=== PATIENT | male | born 1995 | race African-American/Black ===

== ENCOUNTER 2017-01-15 16:56 | Emergency (ER) | payer OTHER ==
[2017-01-15 17:40] LABS: #Basophils 0.1 thou/uL (0.0-0.2); #Eosinphils 0.1 thou/uL (0.0-0.7); #Lymphocytes 3.2 thou/uL (1.20-3.40); #Monocytes 0.7 thou/uL (0.11-0.59); #Neutrophils 5.3 thou/uL (1.40-6.50); %Basophils 0.6 % (0.0-1.0); %Eosinophils 1.3 % (0.0-10.0); %Lymphocytes 34.3 % (28.0-48.0); %Monocytes 7.4 % (0.0-4.0); Hematocrit 43.9 % (42.0-52.0); Mean Platelet Volume 10.2 fL (7.4-10.4); Red Blood Cell (RBC) Count 5.34 mill/uL (4.00-5.20); White Blood Cell (WBC) Count 9.3 thou/uL (4.8-10.8)
[2017-01-15 18:08] LABS: Troponin I 0.014 ng/mL (< 0.028)
--- NOTE | 2017-01-15 18:20 | RAD ---
PA AND LATERAL CHEST: History: Chest pain, abnormal EKG. FINDINGS: The cardiomediastinum is normal. The lungs are expanded and clear. The bony thorax is normal. IMPRESSION: Normal exam. POS: [facility]
[2017-01-15 18:24] LABS: Anion Gap 18 mmol/L (10-20); BUN (Urea Nitrogen) 18 mg/dL (8.4-21.0); CK (CPK) 592 U/L (30-200); Calc. Creatinine Clearance 0 mL/min (70-130); Calcium 10.4 mg/dL (7.8-10.44); Carbon Dioxide 23 mmol/L (22-29); Chloride 94 mmol/L (98-107); Estimated GFR-MDRD 58; Magnesium 2.4 mg/dL (1.7-2.2)
[2017-01-15 19:07] LABS: Hemoglobin A1c 12.2 % (4.0-6.0)
[2017-01-15 19:07] LABS: Phosphorus 5.6 mg/dL (2.3-4.7)
[2017-01-15] MEDS ORDERED: Insulin Regular 300 UNITS/3 ML VIAL ONE (19:11)
[2017-01-15 19:43] LABS: Bilirubin Negative (Negative); Blood, Urine Negative (Negative); Glucose, Urine (Dipstick) >=1000 mg/dL (Negative); Ketone, Urine 15 mg/dL (Negative); Nitrite Negative (Negative); Protein, Urine (Dipstick) Negative (Neg-Trace); Urobilinogen 0.2 mg/dL (0.2-1.0)
[2017-01-15 20:26] LABS: Anion Gap 11 mmol/L (-14-95); T. Carbon Dioxide 29.2 mmol/L (1.0-85.0); pH (Venous) 7.378 (7.35-7.45); vO2 Saturation-calc 82.2 % (0.0-100.0)
== END 2017-01-15 21:45 | disposition home or self-care (01) ==
LOC: ERS 16:56
DX: R07.89 Other chest pain (principal); E11.9 Type 2 diabetes mellitus without complications; I10 Essential (primary) hypertension; F17.220 Nicotine dependence, chewing tobacco, uncomplicated
CPT/HCPCS: 36415; 36416; 71020; 80048; 81003; 82010; 82330; 82553; 82803; 83036; 83690; 83735; 84100; 84484; 85025; 93005; 93010; 96361; 96372; 96374; J1815

== ENCOUNTER 2019-03-29 12:30 | Emergency (ER) | payer OTHER ==
[2019-03-29] MEDS ORDERED: Lidocaine 1% w/Epinephrine 1:100K 20 ML VIAL ONE (12:52)
[2019-03-29] MEDS ORDERED: HYDROcodone/Acetaminophen 10/325 mg Tablet ONE (12:52)
== END 2019-03-29 14:20 | disposition home or self-care (01) ==
LOC: ERS 12:30
DX: L02.211 Cutaneous abscess of abdominal wall (principal); I10 Essential (primary) hypertension; E11.9 Type 2 diabetes mellitus without complications; F17.220 Nicotine dependence, chewing tobacco, uncomplicated; Z79.84 Long term (current) use of oral hypoglycemic drugs
CPT/HCPCS: 10060

== ENCOUNTER 2019-07-30 14:32 | Emergency (ER) | payer OTHER ==
[2019-07-30] MEDS ORDERED: Bupivacaine 0.5% 10 ML VIAL ONE (15:31)
[2019-07-30] MEDS ORDERED: HYDROcodone/Acetaminophen 10/325 mg Tablet ONE (16:17)
[2019-07-30] MEDS ORDERED: cefTRIAXone\\ROCEPHIN 2 GM VIAL ONE (17:15)
[2019-07-30 17:26] LABS: #Eosinphils 0.1 thou/uL (0.0-0.7); #Lymphocytes 2.6 thou/uL (1.20-3.40); #Monocytes 1.4 thou/uL (0.11-0.59); #Neutrophils 9.9 thou/uL (1.40-6.50); %Basophils 0.3 % (0.0-1.0); %Eosinophils 0.5 % (0.0-10.0); %Lymphocytes 18.3 % (21.0-51.0); %Monocytes 9.9 % (0.0-10.0); Hemoglobin 13.7 g/dL (14.0-18.0); Mean Corpuscular HGB CONC 35.1 g/dL (32.0-36.0); Mean Corpuscular Volume 82.5 fL (78.0-98.0); Platelet Count 123 thou/uL (130-400); RBC Distribution Width 12.2 % (11.5-14.5); Red Blood Cell (RBC) Count 4.72 mill/uL (4.70-6.10); White Blood Cell (WBC) Count 13.9 thou/uL (4.8-10.8)
== END 2019-07-30 18:23 | disposition home or self-care (01) ==
LOC: ERS 14:32
DX: L02.214 Cutaneous abscess of groin (principal); L03.311 Cellulitis of abdominal wall; I10 Essential (primary) hypertension; F17.210 Nicotine dependence, cigarettes, uncomplicated
CPT/HCPCS: 10060; 85025; 96365; J0696; J3490

== ENCOUNTER 2019-07-31 14:33 | Emergency (ER) | payer OTHER | END 2019-07-31 15:07 | disposition home or self-care (01) | LOC: ERS 14:33 | DX: L03.314 Cellulitis of groin (principal); L02.214 Cutaneous abscess of groin; I10 Essential (primary) hypertension; F17.210 Nicotine dependence, cigarettes, uncomplicated; Z79.899 Other long term (current) drug therapy | CPT/HCPCS: 99282 ==

== ENCOUNTER 2024-02-27 02:48 | Inpatient (IN) | payer BC ==
[2024-02-27] MEDS ORDERED: Senokot S 8.6-50 MG TAB PO PRN (03:04)
[2024-02-27] MEDS ORDERED: Ondansetron PF 4 MG/2 ML Vial IVP PRN ×3 (03:04→09:40)
[2024-02-27] MEDS ORDERED: Acetaminophen 325 MG TAB PO PRN (03:04)
[2024-02-27] MEDS ORDERED: Calcium Carbonate 500 MG ChewTAB PO PRN (03:04)
[2024-02-27] MEDS ORDERED: Dextrose 50% Abboject 50 ML SYRINGE SLOW IVP PRN (03:08)
[2024-02-27] MEDS ORDERED: Glucagon 1 MG/ML KIT IM PRN (03:08)
[2024-02-27] MEDS ORDERED: Dextrose 5% in Water 1,000 ML IV PRN (03:08)
[2024-02-27 03:09] LABS: Actual Bicarbonate (HCO3a) 22.7 mEq/L (22-28); Base Excess (BEa) -1.2 mEq/L (-2.0 to +3.0); CO2 Tension 35.6 mmHg (35.0-45.0); Calcium, Ionized (arterial) 1.17 mmol/L (1.12-1.30); O2 Tension (PaO2), arterial 85.1 mmHg (80.0-100.0); Potassium - ABG Lab 4.16 mmol/L (3.70-5.30); pH, Arterial 7.422 (7.35-7.45)
[2024-02-27 03:10] LABS: Puncture Site Right Radial artery
[2024-02-27] MEDS ORDERED: Ipratropium/Albuterol 3 ML NEB NEB PRN (04:00)
[2024-02-27 04:21] VITALS: BMI 41.2
[2024-02-27 05:07] LABS: Amphetamine Not Detected (NotDetected); Barbiturates Screen Not Detected (NotDetected); Benzodiazepine Screen Not Detected (NotDetected); Cocaine Metabolite Screen Not Detected (NotDetected); Methadone Not Detected (NotDetected); Methamphetamine Not Detected (NotDetected); Opiate Screen Not Detected (NotDetected); Oxycodone Screen Not Detected (NotDetected); Phencyclidine (PCP) Not Detected (NotDetected); THC/Cannabinoid Screen Not Detected (NotDetected); Tricyclic Screen Not Detected (NotDetected)
[2024-02-27 05:09] LABS: #Basophils 0.04 10x3/uL (0.0-0.2); %Basophils 0.5 % (0.0-1.0); %Eosinophils 1.4 % (0.0-10.0); %Lymphocytes 28.9 % (21.0-51.0); %Monocytes 8.3 % (0.0-10.0); %Neutrophils 60.5 % (42.0-75.0); Hematocrit 36.3 % (42.0-52.0); Hemoglobin 12.5 g/dL (14.0-18.0); Mean Corpuscular HGB CONC 34.4 g/dL (32.0-36.0); Mean Corpuscular Hemoglobin 27.5 pg (27.0-31.0); Mean Corpuscular Volume 79.8 fL (78.0-98.0); Mean Platelet Volume 11.8 fL (7.4-10.4); Platelet Count 176 10x3/uL (130-400); RBC Distribution Width 13.1 % (11.5-14.5); Red Blood Cell (RBC) Count 4.55 mill/uL (4.70-6.10)
[2024-02-27 05:23] LABS: ALT (SGPT) 46 U/L (8-55); AST (SGOT) 26 U/L (5-34); Albumin 2.9 g/dL (3.5-5.0); Alkaline Phosphatase 79 U/L (40-110); Anion Gap 12 mmol/L (10-20); BUN (Urea Nitrogen) 14 mg/dL (8.9-20.6); Bilirubin, Total 1.2 mg/dL (0.2-1.2); Calc. Creatinine Clearance 278 mL/min (70-130); Calcium 8.8 mg/dL (7.8-10.44); Carbon Dioxide 27 mmol/L (22-29); Cardiac Risk 4.3 (Less than 4.5); Chloride 103 mmol/L (98-107); Cholesterol 108 mg/dl (< 200 Desired); Estimated GFR 121; Globulin 3.6 g/dL (2.4-3.5); Glucose 298 mg/dL (70-105); HDL Cholesterol 25 mg/dL (>60 Neg Risk); LDL Cholesterol, Calculated 30 mg/dL; Magnesium 1.8 mg/dL (1.6-2.6); Potassium 4.3 mmol/L (3.5-5.1); Protein, Total 6.5 g/dL (6.0-8.3); Sodium 138 mmol/L (136-145); Triglycerides 265 mg/dL (Less than 150)
[2024-02-27 06:13] LABS: Hemoglobin A1c 11.6 % (4.0-6.0)
[2024-02-27] MEDS: Nitroglycerin 2% Ointment 1 INCH/1 GM Packet TOP SCH (06:37)
[2024-02-27] MEDS: Furosemide 40 MG (4 mL) VIAL SLOW IVP SCH (06:37)
[2024-02-27] MEDS: Famotidine 20 MG TAB PO SCH (08:15)
[2024-02-27] MEDS: Carvedilol 6.25 MG TAB PO SCH (08:15)
[2024-02-27] MEDS: Empagliflozin 10 MG TAB PO SCH (08:15)
[2024-02-27] MEDS: Enoxaparin 40 MG (0.4 mL) SYRINGE SC SCH (08:16)
[2024-02-27] MEDS ORDERED: Enoxaparin 40 MG (0.4 mL) SYRINGE SC SCH (09:00)
[2024-02-27] MEDS: Insulin Lispro 100 UNIT/ML 10 ML VIAL SC PRN ×2 (10:19→20:52)
[2024-02-27] MEDS ORDERED: Electrolyte Replacement Protocol FS PRN (11:30)
[2024-02-27] MEDS: hydrALAZINE 25 MG TAB PO PRN (11:50)
[2024-02-27] MEDS: Magnesium 2 GM/50 ML(in water) 2 GM in Premix 1 BAG IVPB SCH (11:50)
[2024-02-27] MEDS: hydrALAZINE 20 MG/ML VIAL SLOW IVP PRN (12:02)
[2024-02-27] MEDS: Insulin Glargine 30 UNITS/0.3 ML VIAL SC SCH (13:15)
[2024-02-28 04:23] LABS: Anion Gap 18 mmol/L (10-20); BUN (Urea Nitrogen) 16 mg/dL (8.9-20.6); Calc. Creatinine Clearance 252 mL/min (70-130); Calcium 9.1 mg/dL (7.8-10.44); Carbon Dioxide 24 mmol/L (22-29); Chloride 102 mmol/L (98-107); Estimated GFR 108; Glucose 200 mg/dL (70-105); Magnesium 2.3 mg/dL (1.6-2.6); Potassium 3.5 mmol/L (3.5-5.1); Sodium 140 mmol/L (136-145)
[2024-02-28] MEDS: Potassium Chloride 20 MEQ TAB PO SCH (07:26)
[2024-02-28] MEDS ORDERED: Potassium Chloride 20 MEQ in Premix 1 BAG IVPB SCH (08:00)
[2024-02-28] MEDS: Spironolactone 25 MG TAB PO SCH (13:40)
[2024-02-28] MEDS: Sacubitril 24MG/Valsartan 26 MG TAB PO SCH (21:05)
[2024-02-29 04:50] VITALS: BP 160/89; TEMP 98.4
[2024-02-29 08:55] LABS: Anion Gap 14 mmol/L (10-20); BUN (Urea Nitrogen) 20 mg/dL (8.9-20.6); Calc. Creatinine Clearance 207 mL/min (70-130); Calcium 9.7 mg/dL (7.8-10.44); Carbon Dioxide 26 mmol/L (22-29); Chloride 104 mmol/L (98-107); Estimated GFR 100; Glucose 233 mg/dL (70-105); Magnesium 2.4 mg/dL (1.6-2.6); Potassium 4.2 mmol/L (3.5-5.1); Sodium 140 mmol/L (136-145)
[2024-02-29] MEDS: Sacubitril 49 MG/Valsartan 51 MG TABLET PO SCH (09:10)
[2024-02-29] MEDS: Carvedilol 25 MG TAB PO SCH (09:10)
[2024-02-29] MEDS: Enoxaparin 40 MG (0.4 mL) SYRINGE SC SCH (09:11)
[2024-02-29] MEDS: Spironolactone 25 MG TAB PO SCH ×2 (09:12→09:15)
[2024-02-29] MEDS: Furosemide 40 MG TAB PO SCH (09:12)
[2024-02-29] MEDS ORDERED: Carvedilol 25 MG TAB PO SCH (17:00)
[2024-03-01] MEDS ORDERED: Spironolactone 25 MG TAB PO SCH (08:00)
== END 2024-02-29 12:11 | disposition home or self-care (01) | DRG 291 ==
LOC: CCU 02:53 → 2NO 02-28 20:01
PROVIDERS: ADMIT Internal Medicine; ATTEND Internal Medicine
PROC: 4A033R1 Measurement of Arterial Saturation, Peripheral, Percutaneous Approach (ICD-10-PCS; principal; 2024-02-27)
DX: I11.0 Hypertensive heart disease with heart failure (principal); I50.23 Acute on chronic systolic (congestive) heart failure; J96.01 Acute respiratory failure with hypoxia; I42.8 Other cardiomyopathies; I42.0 Dilated cardiomyopathy; E78.5 Hyperlipidemia, unspecified; E11.65 Type 2 diabetes mellitus with hyperglycemia; E87.6 Hypokalemia; E66.813 Obesity, class 3; Z79.899 Other long term (current) drug therapy; Z79.84 Long term (current) use of oral hypoglycemic drugs; Z79.4 Long term (current) use of insulin; Z91.148 Patient's other noncompliance with medication regimen for other reason
CPT/HCPCS: 36415; 36416; 36600; 71045; 80048; 80053; 80061; 80306; 82805; 83036; 83735; 83880; 84443; 84484; 85025; 87428; 93005; 93010; 93306; 93798; 94660; 94760; 96374; J0360; J1650; J1815; J1940; J3475